=== PATIENT | female | born 1945 | race Two or more races ===

== ENCOUNTER 2023-02-11 04:20 | Day surgery (SDC) | payer OTHER, BC ==
[2023-02-09 13:46] VITALS: BMI 30.5
[2023-02-11 10:17] VITALS: RESP 18
[2023-02-11 11:20] VITALS: TEMP 97.3
[2023-02-11 11:57] VITALS: BP 138/77; PULSE 66
== END 2023-02-11 12:06 | disposition home or self-care (01) ==
LOC: JASU-ENDO 04:20
PROVIDERS: ATTEND Internal Medicine Gastroenterology
PROC: 0DBN8ZX Excision of Sigmoid Colon, Via Natural or Artificial Opening Endoscopic, Diagnostic (ICD-10-PCS; 2023-02-11)
PROC: 0DBP8ZX Excision of Rectum, Via Natural or Artificial Opening Endoscopic, Diagnostic (ICD-10-PCS; principal; 2023-02-11 11:00)
DX: Z12.11 Encounter for screening for malignant neoplasm of colon (principal); D12.5 Benign neoplasm of sigmoid colon; D12.8 Benign neoplasm of rectum; K64.8 Other hemorrhoids; K57.30 Diverticulosis of large intestine without perforation or abscess without bleeding